=== PATIENT | male | born 1950 ===

== ENCOUNTER 2022-09-18 09:23 | Day surgery (SDC) | payer OTHER ==
[2022-09-16 09:09] VITALS: BMI 26.6
[2022-09-18] MEDS ORDERED: Acetaminophen 500 MG TAB ONE (10:21)
[2022-09-18] MEDS ORDERED: Ketorolac Tromethamine 30 MG/ML VIAL ONE (10:21)
[2022-09-18] MEDS ORDERED: Gabapentin 300 MG CAP ONE (10:21)
[2022-09-18 11:21] LABS: #Eosinphils 0.2 thou/uL (0.0-0.7); #Lymphocytes 1.8 thou/uL (1.20-3.40); #Monocytes 0.7 thou/uL (0.11-0.59); #Neutrophils 3.8 thou/uL (1.40-6.50); %Basophils 0.4 % (0.0-1.0); %Eosinophils 2.5 % (0.0-10.0); %Lymphocytes 27.3 % (21.0-51.0); %Neutrophils 58.8 % (42.0-75.0); Hemoglobin 13.4 g/dL (14.0-18.0); Mean Corpuscular HGB CONC 33.7 g/dL (32.0-36.0); Mean Corpuscular Hemoglobin 30.7 pg (27.0-31.0); Mean Corpuscular Volume 91.2 fl (78.0-98.0); Mean Platelet Volume 7.3 fL (7.4-10.4); Platelet Count 251 10x3/uL (130-400); RBC Distribution Width 12.1 % (11.5-14.5); Red Blood Cell (RBC) Count 4.35 mill/uL (4.70-6.10); White Blood Cell (WBC) Count 6.5 10x3/uL (4.8-10.8)
[2022-09-18] MEDS ORDERED: Bupivacaine/Epinephrine 0.25% 30 ML VIAL ONE (11:54)
[2022-09-18] MEDS ORDERED: fentaNYL PF 100 MCG/2 ML SYRINGE ONE (12:25)
[2022-09-18] MEDS ORDERED: Famotidine/PF 20 mg/2ml Vial ONE (12:25)
[2022-09-18] MEDS ORDERED: SUGAMMADEX SODIUM 200 MG/2 ML VIAL ONE (12:25)
[2022-09-18] MEDS ORDERED: Promethazine HCl 25 MG/ML VIAL IM PRN (13:04)
[2022-09-18] MEDS ORDERED: Ondansetron HCl/PF 4 MG/2 ML Vial IVP PRN (13:04)
[2022-09-18] MEDS ORDERED: CEFAZOLIN 2 GM VIAL ONE (14:10)
[2022-09-18] MEDS ORDERED: Sodium Chloride 0.9% 100 ML ONE (14:10)
[2022-09-18] MEDS ORDERED: Lidocaine 1% PF 5 ML VIAL ONE (14:19)
[2022-09-18] MEDS ORDERED: Metoprolol Tartrate 5 MG/5 ML VIAL ONE (14:19)
[2022-09-18] MEDS ORDERED: Ondansetron PF 4 MG/2 ML Vial ONE (14:19)
[2022-09-18] MEDS ORDERED: PROPOFOL 200 MG/20 ML VIAL ONE (14:19)
[2022-09-18] MEDS ORDERED: Fentanyl 100 MCG/2 ML VIAL ONE (16:31)
[2022-09-18] MEDS ORDERED: Promethazine HCl 25 MG/ML VIAL ONE (17:10)
== END 2022-09-18 18:30 | disposition home or self-care (01) ==
LOC: SDC 09:23
PROVIDERS: ATTEND Specialist
PROC: 0YUA4JZ Supplement Bilateral Inguinal Region with Synthetic Substitute, Percutaneous Endoscopic Approach (ICD-10-PCS; principal; 2022-09-18)
PROC: 8E0W4CZ Robotic Assisted Procedure of Trunk Region, Percutaneous Endoscopic Approach (ICD-10-PCS; 2022-09-18)
DX: K40.20 Bilateral inguinal hernia, without obstruction or gangrene, not specified as recurrent (principal); E78.00 Pure hypercholesterolemia, unspecified; E11.9 Type 2 diabetes mellitus without complications; I10 Essential (primary) hypertension; Z79.2 Long term (current) use of antibiotics; Z79.82 Long term (current) use of aspirin; Z79.84 Long term (current) use of oral hypoglycemic drugs; Z79.899 Other long term (current) drug therapy
CPT/HCPCS: 36415; 85025; 93005; 93010; C1781; J1885; J2405; J2550; J2704; J3010; J3490; S0028